=== PATIENT | male | born 1955 | race Caucasian/White ===

== ENCOUNTER 2023-04-01 09:13 | Outpatient (CLI) | payer OTHER ==
[~2023-04-01 09:13] MED LIST: Magnevist 469MG/ML 20 ML VIAL ONE
== END 2023-04-01 09:14 | disposition home or self-care (01) ==
LOC: CSHMRI 09:13
PROVIDERS: ATTEND Urology
DX: C61 Malignant neoplasm of prostate (principal)
CPT/HCPCS: 72197; 82565; A9579

== ENCOUNTER 2023-08-01 13:25 | Outpatient (CLI) | payer OTHER | END 2023-08-01 13:26 | disposition home or self-care (01) | LOC: CSHMRI 13:25 | PROVIDERS: ATTEND Urology | DX: C61 Malignant neoplasm of prostate (principal) | CPT/HCPCS: 72197 ==

== ENCOUNTER 2024-07-18 12:39 | Outpatient (CLI) | payer OTHER | END 2024-07-18 12:40 | disposition home or self-care (01) | LOC: CSHMRI 12:39 | PROVIDERS: ATTEND Radiology Radiation Oncology | DX: C61 Malignant neoplasm of prostate (principal) | CPT/HCPCS: 36415; 72197; 82565 ==